=== PATIENT | male | born 1965 | race Caucasian/White ===

== ENCOUNTER 2017-09-27 08:52 | Day surgery (SDC) | payer OTHER ==
[2017-09-27] MEDS ORDERED: MIDAZOLAM 1 MG/ML 2 ML INJ ×2 (10:32)
[2017-09-27] MEDS ORDERED: FENTAnyl 50 MCG/ML VIAL (10:32)
== END 2017-09-27 15:05 | disposition home or self-care (01) ==
LOC: GIL 08:52
DX: Z12.11 Encounter for screening for malignant neoplasm of colon (principal); K57.90 Diverticulosis of intestine, part unspecified, without perforation or abscess without bleeding; K64.4 Residual hemorrhoidal skin tags
CPT/HCPCS: 45380; 88305

== ENCOUNTER 2018-11-10 08:16 | Day surgery (SDC) | payer OTHER ==
[~2018-11-10 08:16] MED LIST: CEFAZOLIN 2 GM/50 ML (PMX) 50 ML IVPB; PROPOFOL 200 MG INJ; SEVOFLURANE 15 MIN; SOD CHLORIDE 0.9% 1,000 ML IV
[2018-11-10] MEDS ORDERED: ROCURONIUM 50 MG INJ (11:46)
[2018-11-10] MEDS ORDERED: PROPOFOL 20 ML (11:46)
[2018-11-10] MEDS ORDERED: CEFAZOLIN 1 GM INJ (11:50)
[2018-11-10] MEDS ORDERED: DEXAMETHASONE 4 MG/ML 5 ML INJ (11:59)
[2018-11-10] MEDS ORDERED: ONDANSETRON 4 MG INJ (12:00)
[2018-11-10] MEDS ORDERED: HYDROCODONE/APAP (5/325) TAB PO (12:30)
[2018-11-10] MEDS ORDERED: NEOSTIGMINE 10 MG INJ (12:31)
[2018-11-10] MEDS ORDERED: GLYCOPYRROLATE 0.4 MG INJ (12:31)
[2018-11-10] MEDS ORDERED: LABETALOL HCL 20MG INJ IV (13:00)
[2018-11-10] MEDS ORDERED: OXYCODONE/ACETAMINOPHEN (5/325) TAB PO ×2 (13:00)
[2018-11-10] MEDS ORDERED: ONDANSETRON 4 MG INJ IV (13:00)
[2018-11-10] MEDS ORDERED: KETOROLAC 30 MG INJ IV (13:00)
[2018-11-10] MEDS ORDERED: hydrALAzine 20 MG INJ IV (13:00)
[2018-11-10] MEDS ORDERED: ALBUTEROL 0.083% (NEB) 2.5 MG/3 ML AMP HHN (13:00)
[2018-11-10] MEDS ORDERED: EPHEDrine SULFATE 50 MG/5 ML SYG IV (13:00)
[2018-11-10] MEDS ORDERED: HYDROmorphONE 1 MG/5 ML IV SYRINGE IV ×2 (13:00)
[2018-11-10] MEDS ORDERED: FENTAnyl 50 MCG/ML VIAL IV ×3 (13:00)
[2018-11-10] MEDS ORDERED: DIPHENHYDRAMINE 50 MG INJ IV (13:00)
[2018-11-10] MEDS ORDERED: METOCLOPRAMIDE 10 MG INJ IV (13:00)
[2018-11-10] MEDS ORDERED: MEPERIDINE 25 MG INJ IV (13:00)
[2018-11-10] MEDS: POLYMYXIN/BACITRACIN 1L IRRIG (13:01)
[2018-11-10] MEDS: BUPIVACAINE 0.25% (MPF) 30 ML INJ (13:01)
[2018-11-10] MEDS: HYDROmorphONE 1 MG/5 ML IV SYRINGE IV (13:11)
== END 2018-11-10 15:13 | disposition home or self-care (01) ==
LOC: SDS 08:16
DX: K40.30 Unilateral inguinal hernia, with obstruction, without gangrene, not specified as recurrent (principal)
CPT/HCPCS: 49507